=== PATIENT | female | born 1980 | race Caucasian/White ===

== ENCOUNTER → 2016-10-21 10:14 | Day surgery (SDC) | payer MEDICAID ==
[~2016-10-21 10:14] MED LIST: DEMEROL50 MG PO; MOTRIN600 MG PO; PRENATAL COMPLE1 TAB PO
== END | disposition home or self-care (01) ==
LOC: D.OPS 10:00
DX: O26.899 Other specified pregnancy related conditions, unspecified trimester (principal)

== ENCOUNTER → 2016-11-09 12:40 | Outpatient (CLI) | payer MEDICAID ==
[2016-11-21 02:44] VITALS: BMI 25.9
== END | disposition home or self-care (01) ==
LOC: D.LDO 12:40
DX: O36.8130 Decreased fetal movements, third trimester, not applicable or unspecified (principal); Z3A.37 37 weeks gestation of pregnancy

== ENCOUNTER → 2016-11-12 15:24 | Outpatient (CLI) | payer MEDICAID | END | disposition home or self-care (01) | LOC: D.LDO 15:24 | DX: O36.8130 Decreased fetal movements, third trimester, not applicable or unspecified (principal); Z3A.37 37 weeks gestation of pregnancy ==

== ENCOUNTER → 2016-11-16 13:06 | Outpatient (CLI) | payer MEDICAID | END | disposition home or self-care (01) | LOC: D.LDO 13:06 | DX: O36.8130 Decreased fetal movements, third trimester, not applicable or unspecified (principal); Z3A.38 38 weeks gestation of pregnancy ==

== ENCOUNTER → 2016-11-19 13:32 | Outpatient (CLI) | payer MEDICAID | END | disposition home or self-care (01) | LOC: D.LABREF 13:32 | DX: O36.8130 Decreased fetal movements, third trimester, not applicable or unspecified (principal); Z3A.38 38 weeks gestation of pregnancy ==

== ENCOUNTER 2016-11-20 22:35 | Inpatient (IN) | payer MEDICAID ==
[~2016-11-20] VITALS: Ht 160 cm; Wt 66.4 kg
[2016-11-20 23:01] LABS: AMORPHOUS SEDIMENT >1+ /lpf (NONE SEEN); APPEARANCE CLOUDY (CLEAR); BACTERIA FEW /hpf (NONE SEEN); BILIRUBIN NEGATIVE (NEGATIVE); COLOR YELLOW (YELLOW); EPITHELIAL CELLS 0-5 /hpf (0-5); GLUCOSE NEGATIVE (NEGATIVE); KETONE NEGATIVE (NEGATIVE); LEUKOCYTE ESTERASE 2+ (NEGATIVE); NITRITE NEGATIVE (NEGATIVE); PROTEIN 1+ mg/dL (NEGATIVE); RED CELLS - URINE 0-5 /hpf (0-5); UROBILINOGEN NORMAL (NORMAL); WHITE CELLS - URINE 25-50 /hpf (0-5)
[2016-11-21] VITALS (8 sets, daily range): BP systolic 111–136; BP diastolic 64–86; Ht 160 cm; Wt 66.4 kg
[2016-11-21 02:32] LABS: HEMATOCRIT 38.8 % (36.0-48.0); MCH 24.9 pg (26.0-34.0); MCHC 30.9 g/dL (31.0-37.0); MCV 80.5 fL (80.0-100.0); RBC 4.82 10x6/uL (4.00-5.40); RDW 18.4 % (11.5-14.5); WBC 22.8 10x3/uL (4.8-10.8)
[2016-11-21 02:52] LABS: UDS - AMPHET NEGATIVE QUAL (NEGATIVE); UDS - BARB NEGATIVE QUAL (NEGATIVE); UDS - BENZO NEGATIVE QUAL (NEGATIVE); UDS - COCAINE NEGATIVE QUAL (NEGATIVE); UDS - METH NEGATIVE QUAL (NEGATIVE); UDS - OPIATE NEGATIVE QUAL (NEGATIVE); UDS - PCP NEGATIVE QUAL (NEGATIVE); UDS - THC NEGATIVE QUAL (NEGATIVE)
--- NOTE | 2016-11-21 12:15 | NUR ---
RECEIVED PATIENT FROM RECOVERY S/P C/S. ALERT AND ORIENTED. IV NS WITH 20 U PITOCIN PLACED ON ALARIS PUMP AT 125 ML/HR. U/2 FIRM, MIDLINE. RUBRA SMALL. KULKARNI DRAINING BLOOD TINGE URINE. LTCS INCISION DRESSING CLEAN, DRY AND INTACT. ICE PACK OVER INCISIONAL DRESSING. SCD'S IN PLACE AND PLACED ON PUMP. MACHINE TURNED ON. UNABLE TO MOVE LOWER EXTREMETIES AND DENIES FEELIING PAIN AT THIS TIME. POSITIONED IN SEMI-FOWLERS POSITION. DISCUSSED PLAN OF CARE AND PAIN MANAGEMENT WITH CONTROL CLERK REPAIRS. VERBALIZED UNDERSTANDING. SIDE RAILS UP X 2, CALL LIGHT IN REACH.
--- NOTE | 2016-11-21 12:26 | NUR ---
KULKARNI CATH EMPTIED 350CC BY SERGE
--- NOTE | 2016-11-21 12:45 | NUR ---
U/2 FIRM, [place]. UNABLE TO MOVE LE. DENIES FEELING PAIN.
--- NOTE | 2016-11-21 13:00 | NUR ---
U/2 FIRM MIDLINE. RUBRA SMALL. UNABLE TO MOVE LE. DENIES PAIN OR DISCOMFORT. INSTRUCTED ON US OF INCENTIVE SPIROMETER. USED X 3. SIDE RAILS UP CALL LIGHT IN REACH. ICE WATER AT BEDSIDE. IN NURSERY. FOB IN ROOM.
--- NOTE | 2016-11-21 13:24 | NUR ---
DILAUDID FLATWORK FOLDER INITIATED. DOSAGE AND FREQUENCY SETTING CONFIRMED BY Jesus MONROY RN. INFANT IN ROOM BY NURSERY RN. PT DENIES PAIN AT THIS TIME. INSTRUCTED ON USE OF FLATWORK FOLDER AND IMPORTANCE OF MANAGING PAIN WHEN FEELING RETURNS. EXPRESSED CONCERN ABOUT IT MAKING HER DROWSY. SIDE RAILS UP X2, CALL LIGHT IN REACH. FOB PRESENT. TO CALL IF ANYTHING IS NEEDED.
--- NOTE | 2016-11-21 13:45 | NUR ---
U/2 FIRM MIDLINE, RUBRA SMALL. DENIES FEELING PAIN. NO REQUESTS.
[2016-11-21 14:58] LABS: HEMATOCRIT 36.6 % (36.0-48.0); HEMOGLOBIN 11.4 g/dL (12-16); MCH 26.1 pg (26.0-34.0); MCHC 31.1 g/dL (31.0-37.0); MCV 83.9 fL (80.0-100.0); MEAN PLATELET VOLUME 10.8 fL (7.4-10.4); PLATELET COUNT 148 10x3/uL (130-400); RBC 4.36 10x6/uL (4.00-5.40); RDW 18.8 % (11.5-14.5); WBC 26.8 10x3/uL (4.8-10.8)
[2016-11-21 15:16] LABS: LYMPHOCYTES 2 % (15-50); MONOCYTES 2 % (2-11); NEUTROPHILS 89 % (40-80); PLATELET ESTIMATE DECREASED
[2016-11-21 15:19] LABS: BURR CELLS 1+
[2016-11-21 15:20] LABS: POIKILOCYTOSIS OCC
--- NOTE | 2016-11-21 15:30 | NUR ---
U/1 FIRM MIDLINE. RUBRA SMALL TO MOD ON PAD. PADS X 2 CHANGED ALONG WITH CHUX PADS. KULKARNI DRAINING WITHOUT DIFFICULTY. INCENTIVE SPIROMETER USED. COUGHED AND DEEP BREATHED. POSITIONED TO RIGHT SIDE. FRESH ICE PACK TO DRESSING OVER INCISION. INFANT IN ROOM. SIDE RAILS UP X 2. VISITOR IN ROOM. TO CALL IF ANYTHING IS NEEDED. CANDY ROLLER AND CALL LIGHT WITHIN REACH.
--- NOTE | 2016-11-21 16:50 | NUR ---
U/1 FIRM, MIDLINE, NOTES INCREASED PAIN WITH FUNDAL CHECK. ENCOURAGED TO USE TAX EXAMINER PRN. IF PAIN IS NOT RELIEVED TO LET RN KNOW. POSITIONED TO RIGHT SIDE FOR COMFORT. NURSERY RN BROUGHT TO ROOM AT THIS TIME. PLANS TO ATTEMPT TO BREASTFEED. FOB IN ROOM. LEMON CHICKEN RANCH DRINK GIVEN AND CHICKEN BROTH. SIDE RAILS UP X 2, CALL LIGHT AND TAX EXAMINER CONTROLLER IN REACH.
--- NOTE | 2016-11-21 17:42 | NUR ---
RESULTS OF CBC CALLED TO DR CHEN. NO NEW ORDERS AT THIS TIME. HAS REPEAT CBC ALREADY ORDERED.
--- NOTE | 2016-11-21 18:00 | NUR ---
FEELING DROWSY, ASKS TO TAKE STATES "I NEED TO TAKE A NAP". U/1 FIRM MIDLINE, TENDER TO TOUCH. KULKARNI DRAINING. IV PATENT. SIDE RAILS UP CALL LIGHT AND MARKET SURVEY REPRESENTATIVE CONTROLLER IN REACH. LIGHTS TURNED ON LOW AND ENCOURAGE PT TO REST.
--- NOTE | 2016-11-21 19:12 | NUR ---
RN TO PT BS FOR DIANA. PT RESTING IN BED IN LEFT TILT POSITION, IN NO ACUTE DISTRESS. PT ASSISTED TO TRANSFER TO BACK FOR COMFORT AND FOR DIANA. PT IS A 36YO G2 NOW P2 WITH PRIMARY C/S TODAY @ 1039 OF VIABLE FEMALE . @ 39.1 WKS GESTATION. AAOX3. HR REGULAR. LUNGS CTAB. ABDOMEN SOFT AND NON TENDER. LOWER ABDOMINAL DRESSING NOTED, C/D/I. FUNDUS FIRM AND ML @ U/-1. LOCHIA RUBRA SMALL. PERINIUM APPEARS TO BE INTACT. KULKARNI IN PLACE AND DRAINING CLEAR YELLOW URINE. 45ML URINE EMPTIED FROM BAG. LOWER LEG SCD'S IN PLACE AND PUMPING. NO SWELLING NOTED TO UPPER AND LOWER EXTREMITIES BILATERALLY. NS WITH 20 UNITS PITOCIN INFUSING VIA PUMP AT 125CC/HR AND DILAUDID BAG CHECKER INFUSING VIA PUMP TO EXISTING 18G IN RIGHT HAND, NO REDNESS OR EDEMA NOTED AT SITE. PT C/O PAIN, RATES 5/10. ENCOURAGED PT TO USE BAG CHECKER PUMP. PT TOLERATING CLEAR LIQUID DIET WELL. ICE PACK TO ABDOMEN REFRESHED. PT PROVIDED WITH FRESH WATER MUG AND JELLO. PT DENIES ANY FURTHER NEEDS AT THIS TIME. BED IN LOW POSITION, SIDE RAILS UP TIMES 2, CALL LIGHT AND PHONE IN REACH. WILL CONT TO MONITOR PT STATUS.
--- NOTE | 2016-11-21 20:37 | NUR ---
RN TO PT BS FOR I&O'S. PT ADJUSTING SELF IN BED WITH ASSISTANCE OF FAMILY AT BS. I&O'S PERFORMED, WNL. PT DENIES ANY NEEDS AT THIS TIME. BED IN LOW POSITION, SIDE RAILS UP TIMES 2, CALL LIGHT AND PHONE IN REACH. FAMILY TIMES 5 AT BS FOR SUPPORT AND ASSISTANCE. REMAINS AT PT BS FOR COUPLET CARE. WILL CONT TO MONITOR PT STATUS.
--- NOTE | 2016-11-21 21:40 | NUR ---
RN TO PT BS FOR ROUNDS. PT STATES SHE NEEDS TO VOID. RN INFORMED PT SHE WAS FREE TO AMBULATE NEEDED. SO AT PT BS FOR ASSISTANCE. PT DENIES ANY FURTHER NEEDS AT THIS TIME. BED IN LOW POSITION, SIDE RAILS UP TIMES 2, CALL LIGHT AND PHONE IN REACH. REMAINS AT PT BS FOR COUPLET CARE. WILL CONT TO MONITOR PT STATUS.
--- NOTE | 2016-11-21 22:42 | NUR ---
RN TO PT BS FOR ROUNDS. PT ASSISTED IN BED FOR COMFORT TO RIGHT TILT POSITION. I&O'S PERFORMED. WNL. PT DENIES ANY FURTHER NEEDS AT THIS TIME. BED IN LOW POSITION, SIDE RAILS UP TIMES 2, CALL LIGHT AND PHONE IN REACH. SO REMAINS AT PT BS FOR SUPPORT AND ASSISTANCE. INFANT REMAINS AT PT BS FOR COUPLET CARE. WILL CONT TO MONITOR PT STATUS.
[2016-11-22 00:01] VITALS: BP 109/58
--- NOTE | 2016-11-22 00:02 | NUR ---
RN TO PT BS FOR VS AND I&O'S. P RESTING IN BED IN RIGHT TILT POSITION, IN NO ACUTE DISTRESS. VS TAKEN, WNL. I&O'S PERFORMED, WNL. ASSISTED FOB WITH SWADDLING . PT DENIES ANY FURTHER NEEDS AT THIS TIME. BED IN LOW POSITION, SIDE RAILS UP TIMES 2, CALL LIGHT AND PHONE IN REACH. SO REMAINS AT PT BS FOR SUPPORT AND ASSISTANCE. REMAINS AT PT BS FOR COUPLET CARE. WILL CONT TO MONITOR PT STATUS.
--- NOTE | 2016-11-22 01:40 | NUR ---
RN TO PT BS FOR I&O'S. PT RESTING IN BED IN SEMI-FOWLERS POSITION, IN NO ACUTE DISTRESS. I&O'S PERFORMED, WNL. PT DENIES ANY NEEDS AT THIS TIME. BED IN LOW POSITION, SIDE RAILS UP TIMES 2, CALL LIGHT AND PHONE IN REACH. SO AT PT BS FOR SUPPORT AND ASSISTANCE. NURSERY RN AT PT BS, TRANSPORTED TO NURSERY FOR CARE. WILL CONT TO MONITOR PT STATUS.
--- NOTE | 2016-11-22 03:20 | NUR ---
RN TO PT BS TO PERFORM I&O'S. PERFORMED, WNL. FRESH WATER MUG PROVIDED TO PT. PITOCIN BAG CHANGED TO INFUSE VIA PUMP AT 125CC/HR. PT MOVING IN BED FOR COMFORT. PT DENIES ANY FURTHER NEEDS AT THIS TIME. BED IN LOW POSITION, SIDE RAILS UP TIMES 2, CALL LIGHT AND PHONE IN REACH. SO REMAINS AT PT BS FOR SUPPORT AND ASSISTANCE. WILL CONT TO MONITOR PT STATUS.
[2016-11-22 04:41] VITALS: BP 117/65
--- NOTE | 2016-11-22 04:43 | NUR ---
RN TO PT BS FOR I&O'S AND VS. PT RESTING IN BED IN SEMI-FOWLERS POSITION IN NO ACUTE DISTRESS. RESPIRATIONS EVEN AND UNLABORED. VS TAKEN, WNL. I&O'S PERFORMED, WNL. PT DENIES ANY FURTHER NEEDS AT THIS TIME. BED IN LOW POSITION, SIDE RAILS UP TIMES 2, CALL LIGHT AND PHONE IN REACH. SO REMAINS AT PT BS FOR SUPPORT AND ASSISTANCE. WILL CONT TO MONITOR PT STATUS.
[2016-11-22 05:17] LABS: WBC 23.9 10x3/uL (4.8-10.8)
[2016-11-22 05:18] LABS: HEMATOCRIT 27.8 % (36.0-48.0); HEMOGLOBIN 8.8 g/dL (12-16); MCH 25.9 pg (26.0-34.0); MCHC 31.7 g/dL (31.0-37.0); MCV 81.8 fL (80.0-100.0); MEAN PLATELET VOLUME 11.2 fL (7.4-10.4); PLATELET COUNT 134 10x3/uL (130-400); RDW 18.7 % (11.5-14.5)
[2016-11-22 05:39] LABS: EOSINOPHILS 2 % (0-7); LYMPHOCYTES 34 % (15-50); MONOCYTES 12 % (2-11); NEUTROPHILS 52 % (40-80); PLATELET ESTIMATE NORMAL
--- NOTE | 2016-11-22 06:08 | NUR ---
RN TO PT BS FOR ROUNDS, I&O'S AND TO PERFORM WAI CARE. PT AT THIS TIME. WILL RETURN TO PERFORM INTERVENTIONS. BED IN LOW POSITION, SIDE RAILS UP TIMES 2, CALL LIGHT AND PHONE IN REACH. SO REMAINS AT PT BS FOR SUPPORT AND ASSISTANCE. REMAINS AT PT BS FOR COUPLET CARE. WILL CONT TO MONITOR PT STATUS.
--- NOTE | 2016-11-22 06:38 | NUR ---
RN TO PT BS FOR ROUNDS. PT RESTING IN BED IN HIGH FOWLERS POSITION ATTEMPTING TO BOTTLE FEED . I&O'S PERFORMED. WILL DEFER WAI CARE AT THIS TIME. BED IN LOW POSITION, SIDE RAILS UP TIMES 2, CALL LIGHT AND PHONE IN REACH. SO REMAINS AT PT BS FOR SUPPORT AND ASSISTANCE. REMAINS AT PT BS FOR COUPLET CARE. WILL CONT TO MONITOR PT STATUS AND GIVE REPORT TO AM SHIFT.
--- NOTE | 2016-11-22 07:15 | NUR ---
ASSUMED CARE AT THIS TIME. SITTING UP IN BED TALKING TO VISITOR. IN ROOM. FOB SLEEPING ON COUCH. SAYS PAIN GETS HIGH 8/10 BUT DOWN TO 3/10 WHEN USING RETAIL CLERK. ENCOURAGED USE OF RETAIL CLERK TO RELIEVE PAIN. FRESH WATER GIVEN. WILL COMPLETE SHIFT ASSESSMENT WHEN VISITOR LEAVES. SIDE RAILS UP X 2, CALL LIGHT IN REACH. ANTICIPATE DC OF KULKARNI AND IV FLUIDS, AMBULATION AND SHOWER THIS AM.
[2016-11-22 08:03] VITALS: BP 117/56
--- NOTE | 2016-11-22 09:06 | NUR ---
CALLED DR CHEN TO CHECK ON POSSIBLE DC OF IV AND KULKARNI, ALSO GAVE REPORT REGARDING RESULTS OF AM CBC. NEW ORDERS WERE RECEIVED. REPEAT HEMOGRAM ORDERED. HE WILL BE IN TO MAKE ROUNDS THIS AM.
[2016-11-22 09:18] LABS: HEMATOCRIT 28.3 % (36.0-48.0); MCH 26.3 pg (26.0-34.0); MCHC 31.8 g/dL (31.0-37.0); MCV 82.7 fL (80.0-100.0); MEAN PLATELET VOLUME 10.6 fL (7.4-10.4); RBC 3.42 10x6/uL (4.00-5.40)
--- NOTE | 2016-11-22 09:24 | NUR ---
DR CHEN HERE AND NOTED REPEAT HEMOGRAM RESULTS.
--- NOTE | 2016-11-22 10:45 | NUR ---
KULKARNI CATHETER DC'D WITH 250 ML URINE. IV LINES DC'D. SALINE LOCK FLUSHED X 3 PORTS WITH NS. PATENT. C/O OCCASIONAL SHARP ABDOMINAL PAINS- POSSIBLE GAS. DISCUSSED RELIEF MEASURES AND PLANS TO AMBULATE WHEN SHE IS READY. FEELS BETTER SITTING IN HIGH FOWLERS POSITION. POSITIONED FOR COMFORT. TOOTH BRUSH GIVEN FOR SELF ORAL CARE. C/O FEELING LIKE "MY EYES ARE PUFFY". SLIGHT EDEMA NOTED OF UPPER EYELIDS. NO RASH OR ERRYTHEM NOTED. ALSO C/O SWOLLEN HANDS. DISCUSSED POSSIBLE CAUSES AND THAT MOVEMENT OUT OF BED MAY HELP. COOL WASHCLOTH GIVEN FOR FACE. ICE PACK IN PLACE FOR LABIAL EDEMA. SCD'S IN PLACE AND WORKING. FOB IN ROOM WITH INFANT IN ARMS. REMINDED NOT TO SLEEP WITH INFANT IN ARMS. VERBALIZED UNDERSTANDING. DR CHEN VISITED EARLIER AND REMOVED ABDOMINAL DRESSING. ADRIANNE INTACT WITHOUT DRAINAGE.
--- NOTE | 2016-11-22 11:00 | NUR ---
RESTING IN HIGH FOWLERS POSITION WITH EYES CLOSED. VS ASSESSED. SAYS SHE IS NOT CURRENTLY HAVING ANY PAIN. DISCUSSED PAIN MANAGEMENT OPTIONS AND INSTRUCTED TO CALL IF ANYTHING IS NEEDED. VERBALIZED UNDERSTANDING. CALL LIGHT IN REACH.
[2016-11-22 11:04] VITALS: BP 121/66
--- NOTE | 2016-11-22 12:00 | NUR ---
UP TO BATHROOM TO VOIDED. KARIS WELL, VOIDED 350 ML CLEAR URINE WITH SCANT LOCHIA IN [place] HAS. DESIRES TO SHOWER.
--- NOTE | 2016-11-22 12:25 | NUR ---
LINENS CHANGED. WAS INSTRUCTED ON CLEANING INCISION. COMPLETED SHOWER, ASSISTED WITH DRESSING AND PLACING CLEAN WAI-PAD OVER INCISION AREA. INSTRUCTED TO CHANGE FREQUENTLY TO KEEP CLEAN AND DRY I.E. WITH EACH VOID. AMBULATED BACK TO BED. WOULD LIKE TO SIT ON EDGE FOR A LITTLE WHILE. DENIES DIZZINESS. SLIGHT SHORTNESS OF BREATH NOTED. DECLINES NEEDING ANYTHING FOR PAIN.
--- NOTE | 2016-11-22 12:28 | NUR ---
DESIRES TO RETURN COMPLETELY TO BED. INSTRUCTED HOW TO GET INTO BED AND POSITION OF CHOICE. KARIS WELL. SIDE RAILS UP X 2, CALL LIGHT IN REACH. LUNCH TRAY IN ROOM. VISITORS AT BEDSIDE ALONG WITH SPOUSE AND INFANT. NO REQUESTS. TO CALL IF DESIRING PAIN MEDICATION, ENCOURAGED NOT TO WAIT TOO LONG IF NEEDED.
--- NOTE | 2016-11-22 13:18 | NUR ---
NORCO 10 MG GIVEN PO FOR RELIEF OF 7/10 ACHING INCISIONAL PAIN AFTER DISCUSSING PAIN MANAGEMENT OPTIONS. DENIES NEEDING ANYTHING ELSE. VISITORS AND INFANT IN ROOM. INSTRUCTED NOT TO GET OOB WITHOUT ASSISTANCE. VERBALIZED UNDERSTANDING. SIDE RAILS UP X 2. CALL LIGHT IN REACH.
--- NOTE | 2016-11-22 13:55 | NUR ---
ASSISTED UP TO BATHROOM TO VOID. VOIDED 500 ML CLEAR URINE. PERIPADS CHANGED AND CLEAN PAD TO INCISION. AMBULATED TO NURSES DESK WITH MINIMAL DISCOMFORT, STATES "IT FEELS BETTER WITH EACH STEP". RETURNED TO ROOM AND DESIRES TO SIT ON EDGE OF BED. 5/10 ON PAIN SCALE. PLANS NAP AFTER VISITORS LEAVE. INFANT IN NURSERY FOR FEEDING. SIDE RAILS UP X 2, CALL LIGHT IN REACH.
--- NOTE | 2016-11-22 15:00 | NUR ---
SITTING UP IN BED . ASKED FOR CUP OF COFFEE. NO ADDITIONAL REQUESTS OR COMPLAINTS. FOB AND SON IN ROOM. SIDE RAILS UP X2, CALL LIGHT IN REACH.
--- NOTE | 2016-11-22 16:09 | NUR ---
SITTING UP IN BED . DENIES NEEDING ANYTHING. VISITORS IN ROOM. TO CALL IF ANYTHING IS NEEDED. VERBALIZED UNDERSTANDING.
--- NOTE | 2016-11-22 17:54 | NUR ---
REQUESTED PAIN MEDICATION FOR 6/10 INCISIONAL PAIN. DISCUSSED PAIN MANAGEMENT OPTIONS. ASKED FOR MOTRIN AND SAYS SHE WILL TAKE NORCO BEFORE WALKING THIS PM. MOTRIN 600 MG GIVEN PO. SITTING IN BED EATING DINNER. STATES "AFTER WALKING I'M GOING TO TRY THAT TECHNIQUE TO GET RID OF GAS". TO CALL IF ANYTHING IS NEEDED. CALL LIGHT IN REACH. DID VOID ADDITIONAL TIME WITHOUT DIFFICULTY. EMPTIED 500 ML CLEAR URINE OUT OF [place] HAT. IN NURSERY.
--- NOTE | 2016-11-22 18:41 | NUR ---
AMBULATED HALF WAY TO KAYE, NOTED TO HAVE INCREASED LOWER ABDOMINAL PAIN AFTER COUGHING. INSTRUCTED TO RETURN TO ROOM AND CONSIDER ADDITIONAL PAIN MEDICATION BEFORE ATTEMPTING TO WALK AGAIN. 7/10 ON PAIN SCALE.
--- NOTE | 2016-11-22 18:44 | NUR ---
NORCO 10 MG GIVEN PO FOR RELIEF OF PAIN. REQUESTED SOMETHING TO SUPPORT LOWER ABDOMEN. RETURNED TO SEMI FOWLERS POSITION. VISITOR IN ROOM. IN NURSERY. SIDE RAILS UP. CALL LIGHT IN REACH.
[2016-11-22 18:47] VITALS: BP 116/60
--- NOTE | 2016-11-22 19:39 | NUR ---
RN TO PT BS FOR DIANA. PT RESTING IN BED IN HIGH FOWLERS POSITION, HOLDING , PT IN NO ACUTE DISTRESS. PT IS A 36YO G2 NOW P2 WITH PRIMARY C/S YESTERDAY @ 1039 OF VIABLE FEMALE . @ 39.1 WKS GESTATION. AAOX3 HR REGULAR. LUNG SOUNDS ABNORMAL BILATERALLY. DISCUSSED WITH PT THE IMPORTANCE OF COUGHING AND DEEP BREATHING, PT VERBALIZED UNDERSTANDING. ABDOMEN SLIGHTLY TENSE AND DISTENDED. LOWER ABDOMINAL INCISION NOTED. ADRIANNE IN PLACE, INCISION WELL PROXIMATED, WITH NO REDNESS OR EDEMA NOTED TO SITE. BS HYPOACTIVE TIMES 4. ENCOURAGED PT TO WALK. PT TOLERATING REGULAR DIET AT THIS TIME. PT VOIDING WITHOUT DIFFICULTY. PT STATES SHE HAS NOT PASSED GAS OR HAD A BM SINCE C/S. FUNDUS NOT PALPATED. LOCHIA RUBRA SCANT. WAI PAD AND PANTIES IN PLACE. PERINIUM INTACT WITH MINIMAL SWELLING NOTED. 1+ EDEMA NOTED TO UPPER AND LOWER EXTREMITIES BILATERALLY. 1+ PERIORBITAL EDEMA NOTED. 18G SL IN RIGHT HAND FLUSHED WITH 5CC NS AT THIS TIME WITHOUT DIFFICULTY. NO REDNESS OR EDEMA NOTED TO SITE. PT RATES PAIN AT 4/10, MEDICATED ON AM SHIFT. PT DENIES ANY NEEDS AT THIS TIME. BED IN LOW POSITION, SIDE RAILS UP TIMES 2, CALL LIGHT AND PHONE IN REACH. FAMILY AT PT BS TIMES 1 FOR SUPPORT AND ASSISTANCE. REMAINS AT PT BS FOR COUPLET CARE. WILL CONT TO MONITOR PT STATUS.
--- NOTE | 2016-11-22 20:55 | NUR ---
RN TO PT BS FOR ROUNDS. PT SITTING IN BED PROVIDING PRIMARY CARE FOR . PT IN NO ACUTE DISTRESS. PT DENIES ANY NEEDS AT THIS TIME. BED IN LOW POSITION, SIDE RAILS UP TIMES 2, CALL LIGHT AND PHONE IN REACH. FAMILY TIMES 2 AT PT BS FOR SUPPORT AND ASSISTANCE. REMAINS AT PT BS FOR COUPLET CARE. WILL CONT TO MONITOR PT STATUS.
--- NOTE | 2016-11-22 22:53 | NUR ---
RN TO PT BS FOR ROUNDS AND VS. PT RESTING IN BED IN SEMI-FOWLERS POSITION WITH INFANT AT BS, IN NO ACUTE DISTRESS. VS TAKEN, WNL. PT DENIES ANY NEEDS AT THIS TIME. BED IN LOW POSITION, SIDE RAILS UP TIMES 2, CALL LIGHT AND PHONE IN REACH. FAMILY AT PT BS TIMES 1 FOR SUPPORT AND ASSISTANCE. INFANT REMAINS AT PT BS FOR COUPLET CARE. WILL CONT TO MONITOR PT STATUS.
[2016-11-22 22:55] VITALS: BP 125/58
--- NOTE | 2016-11-23 00:18 | NUR ---
RN TO PT BS FOR ROUNDS. PT AMBULATING IN ROOM TO BR. PT IN NO ACUTE DISTRESS. PT REQUESTS BE TRANSPORTED TO NURSERY FOR OBSERVATION TO ALLOW HER TIME TO REST. INFANT TRANSPORTED TO NURSERY VIA OPEN CRIB AND REPORT GIVEN TO NURSERY RN. RN RETURNS TO ROOM. PT C/O PAIN, RATES 8, REQUESTS MEDICATION. 1 TAB IBUPROFEN AND 1 TAB NORCO 10 PROVIDED TO PT AT THIS TIME. WATER MUG REFRESHED. PT DENIES ANY FURTHER NEEDS. BED IN LOW POSITION, SIDE RAILS UP TIMES 2, CALL LIGHT AND PHONE IN REACH. FAMILY AT PT BS TIMES 1 FOR SUPPORT AND ASSISTANCE. WILL CONT TO MONITOR PT STATUS.
--- NOTE | 2016-11-23 01:45 | NUR ---
RN TO PT BS FOR ROUNDS. PT RESTING IN BED IN SEMI-FOWLERS POSITION, WITH EYES CLOSED, IN NO ACUTE DISTRESS. RESPIRATIONS EVEN AND UNLABORED. BED IN LOW POSITION, SIDE RAILS UP TIMES 2, CALL LIGHT AND PHONE IN REACH. FAMILY AT BS TIMES 1 FOR SUPPORT AND ASSISTANCE. WILL CONT TO MONITOR PT STATUS.
--- NOTE | 2016-11-23 04:42 | NUR ---
RN TO PT BS FOR ROUNDS. PT RESTING IN BED IN RIGHT LATERAL POSITION, WITH EYES CLOSED, IN NO ACUTE DISTRESSS. RESPIRATIONS EVEN AND UNLABORED. BED IN LOW POSITION, SIDE RAILS UP TIMES 2, CALL LIGHT AND PHONE IN REACH. FAMILY TIMES 1 AT PT BS FOR SUPPORT AND ASSISTANCE. WILL CONT TO MONITOR PT STATUS.
--- NOTE | 2016-11-23 06:17 | NUR ---
RN TO PT BS FOR ROUNDS. PT RESTING IN BED IN HIGH FOWLERS POSITION INFANT. PT IN NO ACUTE DISTRESS. FRESH COFFEE PROVIDED TO PT AT THIS TIME. PT DENIES ANY FURTHER NEEDS. BED IN LOW POSITION, SIDE RAILS UP TIMES 2, CALL LIGHT AND PHONE IN REACH. FAMILY AT PT BS TIMES 1 FOR SUPPORT AND ASSISTANCE. REMAINS AT PT BS FOR COUPLET CARE. WILL CONT TO MONITOR PT STATUS AND GIVE REPORT TO AM SHIFT.
--- NOTE | 2016-11-23 08:00 | NUR ---
AM ASSESSMENT COMPLETED. PT DENIES HEAVY BLEEDING OR PASSING CLOTS. PT JUST GOT OUT OF THE BATHROOM, PERICARE PER SELF. PT STATES "I HAVE JUST STARTED PASSING QUITE A BIT OF GAS". ABDOMEN PALPATES SOFT. PT IS DRESSED IN OWN CLOTHING. NSY NURSE IN ROOM. PT REQUESTS TO HAVE IV TAKEN OUT. SL DC'D WITH CATH INTACT. PT KARIS WELL. PRESSURE HELD ON IV SITE FOR APPROX 30 SEC, WITH INSTRUCTIONS FOR PT TO HOLD FOR APPROX 1-2 MIN LONGER. PT AGREES. SR UP X2, CALL LIGHT AND PHONE WITHIN REACH.
--- NOTE | 2016-11-23 08:00 | NUR ---
DR. CHEN IN ROOM SPEAKING WITH PT.
[2016-11-23 08:10] VITALS: BP 127/73
--- NOTE | 2016-11-23 08:15 | NUR ---
TO ROOM, FRESH ICE WATER SERVED. PT STATES "I DIDN'T HOLD PRESSURE LONG ENOUGH AND MY IV STARTED BLEEDING. BLOOD NOTED ON BED LINENS. BED LINENS CHANGED. IV SITE CLEANSED, WITH NEW BANDAID APPLIED, AND PRESSURE HELD. FAMILY AT BEDSIDE. SR UP X 2, CALL LIGHT AND PHONE WITHIN REACH. PT HAS BREAKFAST TRAY AT BEDSIDE. PT DENIES NEEDING PAIN MEDICATION AT THIS TIME.
--- NOTE | 2016-11-23 09:12 | NUR ---
Cora Morris 11/23/16 LE@ 9:00 S: Patient states is going good. eats fine. O: Patient sitting up on side of bed, family members in room all taking turns holding and toddler in room admiring his sister. Congratulated on delivery, asked if she is having any experience with sore nipples, patient replied yes, a little. Patient nipples do appear to be red, may be due to infant latch. Explained how to hold for feeding, turn infant tummy to tummy, nose opposite of nipple, and gently allow to latch, latched on the left breast at 9:08, first attempt mouth was open about 90 degrees, was re-latched to the breast in cradle position, round cheeks, mouth 140 degree, sucking in a rocking motion, observed infant removing milk. Encouraged to continue to feed on demand, supply and demand what infant takes out your body will make more of. Latch infant when showings signs of feeding cues (explained feeding cues), feed infant on demand. Provided handouts and explained on what to expect the first week, engorgement, feeding cues, skin to skin, waking a sleeping baby, and positions. Latching for every feeding will help with establishing her milk supply. Praised for , asked if any questions or concerns, patient declined, thanked LC, will follow up. A: Patient appears confident with . P: Continue to support exclusively . Verenice Morris, CLC
[2016-11-23 11:13] LABS: RAPID PLASMA REAGIN Non Reactive (Non Reactive)
--- NOTE | 2016-11-23 12:00 | NUR ---
PT AMBULATORY IN ROOM. PREPARING FOR DISCHARGE. PT DENIES NEEDING PAIN MEDICATION AT THIS TIME. DENIES OTHER NEEDS, WELL. FAMILY REMAINS WITH PT.
--- NOTE | 2016-11-23 13:36 | NUR ---
MED FOR FPAIN OF 09/05. ALSO DISCUSSED INCREASE IN GAS PAIN. ENCOURAGED PT TO WALK.
[2016-11-23] MEDS ORDERED: IBUPROFEN600 MG PO (14:32)
[2016-11-23] MEDS ORDERED: HYDROCODONE-APA1 TAB PO (14:32)
--- NOTE | 2016-11-23 14:45 | NUR ---
DISCHARGE INSTRUCTIONS EXPLAINED TO PT. PT DENIES QUESTIONS AT THIS TIME. COPIES OF D/C INSTRUCTIONS, ALONG WITH PP INSTRUCTION SHEET, APPT CARD, AND PRESCRIPTIONS GIVEN TO PT. PT STATES SHE WOULD RATHER WALK OUT THAN GO BY WHEELCHAIR, REFUSES WHEELCHAIR. PT THEN ESCORTED OFF UNIT WITH INFANT IN [place], FAMILY ASSISTING PT, TO PRIVATE VEHICLE, WITH AWAITING.
== END 2016-11-23 15:00 | disposition home or self-care (01) | DRG 765 ==
LOC: D.LDO 22:35 → D.LD 22:35 → D.LDO 11-21 01:57 → D.LD 11-21 01:58
PROVIDERS: ADMIT Obstetrics & Gynecology
PROC: 04QY0ZZ Repair Lower Artery, Open Approach (ICD-10-PCS; 2016-11-21)
PROC: 0TNB0ZZ Release Bladder, Open Approach (ICD-10-PCS; 2016-11-21)
PROC: 10907ZC Drainage of Amniotic Fluid, Therapeutic from Products of Conception, Via Natural or Artificial Opening (ICD-10-PCS; 2016-11-21)
PROC: 10D00Z1 Extraction of Products of Conception, Low, Open Approach (ICD-10-PCS; principal; 2016-11-21 10:18)
DX: O99.334 Smoking (tobacco) complicating childbirth (principal); I77.79 Dissection of other specified artery; Z3A.39 39 weeks gestation of pregnancy; Z37.0 Single live birth; O99.324 Drug use complicating childbirth; F12.90 Cannabis use, unspecified, uncomplicated; O99.62 Diseases of the digestive system complicating childbirth; O62.1 Secondary uterine inertia; K66.0 Peritoneal adhesions (postprocedural) (postinfection)